=== PATIENT | female | born 1975 | race Two or more races ===

== ENCOUNTER → 2016-10-08 | Outpatient (CLI) | payer MEDICARE, OTHER ==
[~2016-10-08] MED LIST: LEVOTHYROXINE
[2016-10-08 08:57] LABS: Basophils # (auto) 0 uL; Basophils % (auto) 0.1 % (0.0-2.0); CONDITION Y; Eosinophils # (auto) 0 uL; Eosinophils % (auto) 0.7 % (0.0-7.0); Hematocrit 41.5 % (36.0-46.0); Hemoglobin 14.3 g/dL (12.2-16.2); Lymphocytes # (auto) 1.5 uL; Lymphocytes % (auto) 23.1 % (10.0-50.0); Mean Corpuscular Hemoglobin 30.3 pg (28.0-32.0); Mean Corpuscular Hgb Conc. 34.5 g/dL (32.0-36.0); Mean Corpuscular Volume 87.6 fL (80.0-100.0); Mean Platelet Volume 11.1 fL (7.4-10.4); Monocytes # (auto) 0.6 uL; Neutrophils # (auto) 4.1 uL; Neutrophils % (auto) 66.1 % (37.0-80.0); Platelet Count (auto) 198 10^3/uL (140-450); Red Cell Distribution Width 12.7 % (11.6-16.0); White Blood Cell 6.3 10^3/uL (4.4-10.8)
[2016-10-08 09:33] LABS: Albumin 3.5 g/dL (3.4-5.0); BUN/Creatinine Ratio 32.6; Bilirubin, Total 0.3 mg/dL (0.2-1.0); Calcium 8.9 mg/dL (8.5-10.1); Potassium 3.7 mmol/L (3.5-5.1); Total Protein 6.9 g/dL (6.4-8.2)
== END | disposition home or self-care (01) ==
LOC: LAB 08:11
DX: I10 Essential (primary) hypertension (principal); M06.9 Rheumatoid arthritis, unspecified; M25.50 Pain in unspecified joint; D64.9 Anemia, unspecified; Z79.899 Other long term (current) drug therapy
CPT/HCPCS: 36415; 80053; 85025; 85652; 86141